=== PATIENT | female | born 1955 | race Caucasian/White ===

== ENCOUNTER 2024-02-25 05:06 | Observation (INO) ==
--- NOTE | 2024-01-28 14:03 | PAT Medication Instructions ---
Medication Instructions Date of Service January 28, 2024 Home Medications amitriptyline 25 mg tablet 75 mg PO HS cholecalciferol (vitamin D3) 125 mcg (5,000 unit) tablet (Vitamin D3) 125 mcg PO QAM duloxetine 30 mg capsule,delayed release 60 mg PO HS gabapentin 400 mg tablet 500 mg PO BID hydroxyzine HCl 10 mg tablet 10 mg PO TID PRN itchiness/dry skin levothyroxine 50 mcg tablet 50 mcg PO QAM meloxicam 15 mg tablet 15 mg PO QAM metformin 500 mg tablet 1,000 mg PO QAM multivitamin 1 cap PO QAM omeprazole 40 mg capsule,delayed release 40 mg PO HS potassium chloride 10 mEq capsule,extended release 10 meq PO QAM propranolol 80 mg tablet 80 mg PO QAM rosuvastatin 5 mg tablet 5 mg PO QAM ASK your surgeon for instructions meloxicam 15 mg tablet 15 mg PO QAM DO NOT take the morning of surgery cholecalciferol (vitamin D3) 125 mcg (5,000 unit) tablet (Vitamin D3) 125 mcg PO QAM hydroxyzine HCl 10 mg tablet 10 mg PO TID PRN itchiness/dry skin metformin 500 mg tablet 1,000 mg PO QAM multivitamin 1 cap PO QAM potassium chloride 10 mEq capsule,extended release 10 meq PO QAM Take morning of surgery With a small sip of water, OTHERWISE NOTHING TO EAT OR DRINK AFTER MIDNIGHT: gabapentin 400 mg tablet 500 mg PO BID levothyroxine 50 mcg tablet 50 mcg PO QAM propranolol 80 mg tablet 80 mg PO QAM rosuvastatin 5 mg tablet 5 mg PO QAM Take evening before surgery amitriptyline 25 mg tablet 75 mg PO HS duloxetine 30 mg capsule,delayed release 60 mg PO HS gabapentin 400 mg tablet 500 mg PO BID hydroxyzine HCl 10 mg tablet 10 mg PO TID PRN itchiness/dry skin (if needed) omeprazole 40 mg capsule,delayed release 40 mg PO HS Other Notes If you have any questions please call us at [phone] or [phone] or [phone] or [phone]
--- NOTE | 2024-01-30 11:37 | Anesthesiology Consultation ---
Date of Service January 30, 2024 Assessment & Plan (1) Encounter for pre-operative examination: - check BSG am DOS. - difficult IV stick. - Outpatient joint assessment: Patient is currently scheduled for inpatient pathway. If re-evaluated and patient/surgeon requests outpatient pathway, patient is acceptable candidate for outpatient joint program from anesthesia standpoint pending surgeon's office assessment of pt motivation/support/completion of same day joint program preop requirements. Chart Review Chart Review: Acceptable Risk for Surgery and Patient seen in Pre Admission Testing Teaching & Discussion Pre-Anesthesia Teaching/Discussion Notes: Instructed NPO after midnight before surgery, except medications with 15 cc of water. Medication instructions provided according to the PAT guidelines. History Surgery Operation Date: 02/25/24 09:20 Proposed Procedures p Left Total Shoulder Arthroplasty - Cesar Prado MD Height/Weight Height: 5 ft 9 in Weight: 109 kg Allergies Allergy/AdvReac Type Severity Reaction Status Date / Time fluconazole Allergy Unknown HIVES Verified 01/27/24 10:37 Sulfa (Sulfonamide Allergy Unknown sometimes Verified 01/27/24 10:37 Antibiotics) stomach upset and ulcers in mouth Medications Home Medications Medication Instructions Recorded Confirmed Last Taken amitriptyline 25 mg tablet 75 mg PO HS 01/27/24 01/27/24 Unknown cholecalciferol (vitamin D3) 125 125 mcg PO QAM 01/27/24 01/27/24 Unknown mcg (5,000 unit) tablet (Vitamin D3) duloxetine 30 mg capsule,delayed 60 mg PO HS 01/27/24 01/27/24 Unknown release gabapentin 400 mg tablet 500 mg PO BID 01/27/24 01/27/24 Unknown hydroxyzine HCl 10 mg tablet 10 mg PO TID PRN itchiness/dry skin 01/27/24 01/27/24 Unknown levothyroxine 50 mcg tablet 50 mcg PO QAM 01/27/24 01/27/24 Unknown meloxicam 15 mg tablet 15 mg PO QAM 01/27/24 01/27/24 Unknown metformin 500 mg tablet 1,000 mg PO QAM 01/27/24 01/27/24 Unknown multivitamin 1 cap PO QAM 01/27/24 01/27/24 Unknown omeprazole 40 mg capsule,delayed 40 mg PO HS 01/27/24 01/27/24 Unknown release potassium chloride 10 mEq 10 meq PO QAM 01/27/24 01/27/24 Unknown capsule,extended release propranolol 80 mg tablet 80 mg PO QAM 01/27/24 01/27/24 Unknown rosuvastatin 5 mg tablet 5 mg PO QAM 01/27/24 01/27/24 Unknown Past Medical History Medical History (Updated 01/30/24 @ 11:43 by Era Mullen PA-C) Acid reflux controlled, stable per pt Anxiety and depression Chronic bronchitis no recent flare. Chronic sinusitis no current s/s infection. DDD (degenerative disc disease), lumbar Difficult intravenous access Fatty liver Herniated disc, cervical full rom History of blood transfusion with lumbar surgery 2011 History of COVID-19 (2019) altered sense of taste and no sense of smell since. History of herniated intervertebral disc thoracic Hypothyroid Migraines Neuropathy hands and feet Osteoarthritis Pre-diabetes on metformin Spondylolisthesis Patient denies h/o stroke, seizures, heart attack, heart failure, or blood clots/DVTs. Exercise / Class Metabolic Activity II 4-5 Yardwork/Stairs/Walk up hill (denies chest discomfort or shortness of breath with one flight of stairs) Past Family History Family History Sister Family history of reaction to anesthesia slow to wake up Past Surgical History Surgical History (Updated 01/30/24 @ 11:32 by Era Mullen PA-C) History of back surgery x4 - 2012, 2014, 2016 and 2018 - 6 rods and 17 bone screws in back. History of bilateral cataract extraction (~01/2024) History of bilateral knee replacement History of colonoscopy History of endoscopy History of sinus surgery x6 Past Anesthesia History No Hx of Anesthesia Complications and Other (sister and maternal aunt slow to wake-patient denies it being life-threatening of significant issue to her knowledge; she denies any personal history of anesthesia reactions or difficulty waking up) History of PONV No Hx of PONV and No Hx of Motion Sickness Social History Smoking Status: Never smoker Do You Dip or Chew Tobacco: No Hx Alcohol Use: No Hx Substance Use: No substance use type: does not use Review of Systems Snoring, denies witnessed apneas. Patient denies chest pain, shortness of breath, dyspnea on exertion, fever, chills, cough, wheezing, or palpitations. Physical Exam Vital Signs Vitals BP 137/90 P 115 (pt notes HR is often elevated in clinical settings due to anxiety) TEMP 98.3 SP02 96% on RA RESP 18 Physical Patient resting comfortably in chair in no acute distress, alert and oriented, responding appropriately throughout visit Mildly limited cervical extension range of motion without pain TMD < 3 finger breadths Mallampati Score 3 Dentition: intact, denies chipped or loose teeth, caps/crowns, implants or bridges Lungs: normal respiratory effort. Good air movement, clear throughout to auscultation, no adventitious breath sounds Cardiac: tachycardic, regular rhythm, no murmurs noted Carotid arteries: negative bruit bilat Lab Results Anesthesia Preop Results Results Anesthesia Widget: WBC 6.00 K/ul (4.8-10.8) 01/30/24 Hgb 14.7 g/dl (12.0-16.0) 01/30/24 Hct 45.0 % (37.0-47.0) 01/30/24 Plt 216 K/uL (130-400) 01/30/24 Na 138 mmol/L (136-145) 01/30/24 K 4.7 mmol/L (3.5-5.1) 01/30/24 Cl 105 mmol/L (98-107) 01/30/24 CO2 26 mmol/L (21-32) 01/30/24 BUN 25 mg/dl (6-23) H 01/30/24 Creat 0.98 mg/dl (0.6-1.2) 01/30/24 Glucose Level 114 mg/dl (70-99(Fasting)) H 01/30/24 PT 10.8 Seconds (9.0-12.0) 01/30/24 PTT 27 Seconds (21-31) 01/30/24 INR 1.0 (0.9-1.1) 01/30/24 TSH 0.710 uIu/ml (0.300-4.500) 01/30/24 HA1c 5.9 % (4.5-5.6) H 01/30/24 Urine Color Yellow 01/30/24 Urine Appearance Clear (Clear) 01/30/24 Urine pH 5.5 (4.5-7.5) 01/30/24 Urine Specific [place] 1.020 (1.000-1.030) 01/30/24 Urine Protein Trace (Negative) H 01/30/24 Urine Glucose (UA) Negative (Negative) 01/30/24 Urine Ketones Trace (Negative) H 01/30/24 Urine Blood Negative (Negative) 01/30/24 Urine Nitrite Negative (Negative) 01/30/24 Urine Bilirubin Negative (Negative) 01/30/24 Urine Urobilinogen Negative (Negative) 01/30/24 Urine Leukocyte Esterase Negative (Negative) 01/30/24 Urine WBC (Auto) 0-5 /hpf (0-5) 01/30/24 Urine RBC (Auto) 0-2 /hpf (0-2) 01/30/24 Urine Hyaline Casts (Auto) 0-2 /lpf (0-2) 01/30/24 Urine Epithelial Cells (Auto) 0-2 /hpf (0-2) 01/30/24 Urine Bacteria (Auto) None Seen (None Seen) 01/30/24 Blood Type O Positive 01/30/24 Antibody Screen NEGATIVE 01/30/24 Testing Electrocardiogram Date: 01/30/24 NSR, rate 100 bpm Chest X-Ray Date: 01/30/24 No active disease in the chest. Cervical Spine Date: 08/19/23 1. No fracture or subluxation within the cervical spine. 2. Broad-based posterior disc osteophyte complex at C5-C6 resulting in [id number] central canal and severe bilateral neural foraminal narrowing. 3. A 3 mm left paracentral focal disc protrusion at C4-C5 which abuts and displaces the exiting left nerve root at this level. 4. Additional degenerative changes as described above.
--- OUTSIDE RECORDS SUMMARY | 2024-02-25 05:24 | External Medical Summary | Summary of Care ---
Author Name Unknown Organization [facility] Address [address] [place] [address] Phone [phone] Care Team Providers Care Brand Specialist Name Role Phone Lesa Holguin MD Primary Care Provider Reason for Visit * Reason Comments Pre-op Clearance 02/25/24 shoulder thro ugh [facility] Encounter Details Date Type Department Care Team (Late st Contact Info) Description 02/17/2024 1:20 PM EDT Office Visit Family Practice [facility] [address] [facility] [place] [address] Pur[facility] Rao [facility] [address] [facility] [address] [id number] Preoperative general physical examination* Allergies Active Allergy Reactions Criticality Noted Date Comments Ciprofloxacin High 01/22/2021 Fluconazole Hives 04/14/2019 Sulfa Antibiotics 04/14/2019 "mouth ulcers" documented as of this encounter (statuses as of 02/17/2024) Medications Medication Sig Dispensed Refills Start Date End Date Status Cholecalciferol (VITAMIN D3) 3000 units Tablet Take 1 Tablet by mouth in the morning. Active ProAir HFA 108 (90 Base) MCG/ACT Inhalation Aerosol Solution Inhale 1 Inhaler by mouth 2 times a day as needed for Cough or Wheezing. Inhale by mouth 2 times a day as needed . 8.5 g 2 Active Gabapentin 300 MG Oral Capsule (Neurontin)Indicati ons:Polyneuropathy Take 1 Capsule by mouth in the morning and 1 Capsule at noon and 1 Capsule before bedtime. 270 Capsule 3 3 Active Rosuvastatin Calcium 5 MG Oral Tablet (Crestor)Indication s:Dyslipidemia, goal LDL below 130 Take 1 Tablet by mouth in the morning. 90 Tablet 3 3 Active Levothyroxine Sodium 50 MCG Oral Tablet (Levoxyl)Indication s:Acquired hypothyroidism Take 1 Tablet by mouth daily first thing in the morning. 90 Tablet 3 3 Active Omeprazole 40 MG Oral Capsule Delayed Release (PriLOSEC)Indicatio ns:Gastroesophageal reflux disease without esophagitis Take 1 Capsule by mouth in the morning. 90 Capsule 3 3 Active metFORMIN HCl ER 500 MG Oral Tablet Extended Release 24 Hour (Glucophage XR)Indications:Pred iabetes Take 2 Tablets by mouth in the morning. 60 Tablet 11 4 Active Meloxicam 15 MG Oral Tablet (Mobic)Indications: Bilateral primary osteoarthritis of knee take 1 tablet by mouth once daily AFTER A MEAL 90 Tablet 3 4 Active Irbesartan 75 MG Oral Tablet (Avapro)Indications :HTN, goal below 130/80 Take 1 Tablet by mouth daily. 90 Tablet 3 4 Active One-A-Day Womens 50+ Oral Tablet Take by mouth. Activ e DULoxetine HCl 30 MG Oral Capsule Delayed Release Particles (Cymbalta)Indicatio ns:Fibromyalgia Take 1 Capsule by mouth daily. 90 Capsule 1 4 Active Propranolol HCl ER 80 MG Oral Capsule Extended Release 24 Hour (Inderal LA)Indications:Othe r migraine without status migrainosus, not intractable take 1 capsule by mouth once daily 90 Capsule 1 4 Active Amitriptyline HCl 25 MG Oral Tablet (Elavil)Indications :Other migraine without status migrainosus, not intractable Take 2 Tablets by mouth at bedtime. 180 Tablet 1 4 Active Potassium Chloride ER 10 MEQ Oral Tablet Extended Release Take 1 Tablet by mouth in the morning. 90 Tablet 1 4 Active hydrOXYzine HCl 10 MG Oral Tablet (Atarax) Take 1 Tablet by mouth 3 times a day as needed for Anxiety or Itching. 90 Tablet 4 Active NATURAL SUPPLEMENT Take by mouth daily. Takes allergy pill from [facility] 02/17/20 24 Discontinu ed(Medicat ion List Clean Up) hydrOXYzine HCl 10 MG Oral Tablet (Atarax) take 1 tablet by mouth three times a day if needed 90 Tablet 4 02/17/20 24 Discontinu ed(Refill) predniSONE 10 MG Oral Tablet (Deltasone) take 4 tablets by mouth once daily as directed for THE FIRST 3 DA... (REFER TO PRESCRIPTION NOTES). 4 02/17/20 24 Discontinu ed(Medicat ion List Clean Up) Bactrim DS 800-160 MG Oral Tablet Bactrim DS 800 mg-160 mg tablet 4 02/17/20 24 Discontinu ed(Medicat ion List Clean Up) documented as of this encounter (statuses as of 02/17/2024) Active Problems Problem Noted Date Diagnosed Date HTN, goal below 130/80 11/20/2023 Prediabetes 11/25/2022 Overview: Per Prediabetes protocol Migraine 08/19/2022 Polyneuropathy 08/19/2022 Overview: left leg after surgery S/P total knee arthroplasty, left 05/06/2022 Preoperative general physical examination 2021 Status post total right knee replacement 020 Bilateral carpal tunnel syndrome 04/14/2019 Hypothyroid GERD (gastroesophageal reflux disease) Fibromyalgia DDD (degenerative disc disease), lumbar Overview: s/p multiple surgeries DDD (degenerative disc disease), cervical Bilateral primary osteoarthritis of knee documented as of this encounter (statuses as of 02/17/2024) Immunizations Name Administration Dates Next Due Pneumococcal Conjugate Vaccine, 20-valent (Prevn ar20) 05/19/2023 Pneumococcal Polysaccharide PPV23 (Pneumovax) Seasonal Influenza, Quadrivalent Hd (Fluzone Hd) 05/19/2023,04/17/2022 TDAP (age 10 and older)(Boostrix) 08/19/2022 Zoster Vaccine Recombinant (Shingrix) 10/12/2021 ,06/27/2021 documented as of this encounter Social History Tobacco Use Types Packs/Day Years Used Date Smoking Tobacco: Never Smokeless Tobacco: Never Alcohol Use Standard Drinks/Week Comments Never 0 (1 standard drink = 0.6 oz pur e alcohol) PHQ-2 Answer Date Recorded PHQ Adult Total Score 2 11/20/2023 Hunger Vital Sign Answer Date Recorded Within the past 12 months, y ou worried that your food would run out before you got the money to buy more. Never true 11/08/19 24 Within the past 12 months, t he food you bought just didn't last and you didn't have money to get more. Never true 11/08/2023 Childcare Answer Date Recorded Do you feel overwhelmed with taking care of a child, family member or friend? No 11/08/2023 Does your family need help f inding childcare? (Household - for ages 0-17 years) Not on file 11/08/2023 Clothing Answer Date Recorded Have you been unable to get clothing when it was really needed? No 11/08/2023 Is your family able to get c lothes or diapers when needed? (Household - for ages 0-17 years) Not on file 11/08/2023 Personal Safety Answer Date Recorded Do you feel unsafe or have concerns for your saf ety? No 11/08/2023 Do you have concerns for you r family's safety? (Household - for ages 0-17 years) Not on file 11/08/2023 Utilities Answer Date Recorded Do you have trouble paying y our heating, water, or electric bill? No 11/08/2023 Is your family able to pay t he heat, water, or electric bill? (Household - for ages 0-17 years) Not on file 11/08/2023 Does your family have access to good internet? (Household - for ages 0-17 years) Not on file 11/08/2023 Employment Status Answer Date Recorded Are you unemployed or without regular income? No 11/08/2023 Does the household have a re gular source of income? (Household - for ages 0-17 years) Not on file 11/08/2023 Social Connections Answer Date Recorded How often do you feel lonely or isolated from th ose around you? Rarely 11/08/2023 Financial Resource Strain Answer Date R ecorded Do you have any trouble payi ng for your medications, or do you think you might in the future? No 11/08/2023 Does your family have troubl e paying for medicine? (Household - for ages 0-17 years) Not on file 11/08/2023 Transportation Needs Answer Date Record ed READ ONLY Do you have troubl e getting a ride to medical visits or work? Never True 11/08/2023 Does your family have a hard time getting a ride to doctors visits? (Household - for ages 0-17 years) Not on file 11/08/2023 Has lack of transportation k ept you from medical appointments, meetings, work, or from getting things needed for daily living? Check all that apply. (Adult - for ages 18 years and over) Not on file 11/08/2023 Do you (or your family) have trouble finding or paying for a ride (transportation)? (Household - for ages 0-17 years) Not on file 11/08/2023 Housing Stability Answer Date Recorded Do you currently live in a s helter or have no steady place to sleep at night? No 11/08/2023 READ ONLY Do you think you a re at risk of becoming homeless? No 11/08/2023 Does your family worry about paying for your home or becoming homeless? (Household - for ages 0-17 years) Not on file 0 11/08/2023 Are you homeless or worried that you might be in the future? (Adult - for ages 18 years and over) Not on file Are you (or your family) jj eless or worried that you might be in the future? (Household - for ages 0-17 years) Not on file Food Insecurity Answer Date Recorded Do you need food for this week? No 11/08/2023 Are you able to get enough f ood for your family? (Household - for ages 0-17 years) Not on file 11/08/2023 Does your family need food t his week? (Household - for ages 0-17 years) Not on file 11/08/2023 Do you always have enough fo od for your family? (Household - for ages 0-17 years) Not on file 11/08/2023 Sex and Gender Information Value Date Recorded Sex Assigned at Female 08/19/2022 5:05 PM EST Gender Identity Female 08/19/2022 5:05 PM EST Sexual Orientation Straight 08/19/2022 5: 05 PM EST Job Start Date Occupation Industry Not on file Not on file Not on file documented as of this encounter Last Filed Vital Signs Vital Sign Reading Time Taken Comments Blood Pressure 130/90 02/17/2024 1:08 PM EDT Pulse 102 02/17/2024 1:08 PM EDT Temperature - - Respiratory Rate - - Oxygen Saturation 98% 02/17/2024 1:08 PM EDT Inhaled Oxygen Concentration - - Weight 108.2 kg (238 lb 7 oz) 02/17/2024 1:08 PM EDT Height - - Body Mass Index 34.21 01/02/2024 9:52 AM EDT documented in this encounter Functional Status Functional Status Response Date of Assess ment Are you deaf or do you have serious difficulty h earing? No 05/06/2022 Are you blind or do you have serious difficulty seeing, even when wearing glasses? No 05/06/2022 Do you have serious difficul ty walking or climbing stairs? (5 years old or older) Yes 05/06/2022 Do you have difficulty dress ing or bathing? (5 years old or older) No 05/06/2022 Because of a physical, menta l, or emotional condition, do you have difficulty doing errands alone such as visiting a doctor s office or shopping? (15 years old or older) No 05/06/20 Cognitive Status Response Date of Assessm ent Because of a physical, menta l, or emotional condition, do you have serious difficulty concentrating, remembering, or making decisions? (5 years old or older) No 05/06/2022 documented as of this encounter Progress Notes * Purvi Rao CRNP - 02/17/2024 12:46 PM EDT Sagrario Galeano : 1955 Chief Complaint: Patient is sent for pre-operative medical clearance at the request of Dr. Johan valiente Planned Surgery: left shoulder replacement Date: 02/25/2024 Planned anesthesia: general anesthesia HPI: 68 year old female presenting for preoperative clearance. Sagrario is able to walk 1 city block without champion and able to ascend 1 flight of step without shortness of breath. Denies difficulty with anesthesia in the past. Patient Active Problem List Diagnosis Hypothyroid GERD (gastroesophageal reflux disease) Fibromyalgia DDD (degenerative disc disease), lumbar DDD (degenerative disc disease), cervical Bilateral primary osteoarthritis of knee Bilateral carpal tunnel syndrome Status post total right knee replacement Preoperative general physical examination S/P total knee arthroplasty, left Migraine Polyneuropathy Prediabetes HTN, goal below 130/80 Past Surgical History: Procedure Laterality Date ARTHROPLASTY KNEE TOTAL Right 08/02/2019 ARTHROPLASTY KNEE TOTAL performed by Ghassan Marroquin DO at OR [facility] ARTHROPLASTY KNEE TOTAL Left 05/06/2022 ROBOTIC ARTHROPLASTY KNEE TOTAL performed by Ghassan Marroquin DO at OR [facility] MISCELLANEOUS ORDER ([facility] ONLY) 10/14/2018 back surgery x 4 6 rods and 17 screws lumbar t6 through pelvis SINUS SURGERY PROCEDURE NEC 05/2021 Current Outpatient Medications Medication Sig Dispense Refill Cholecalciferol (VITAMIN D3) 3000 units Tablet Take 1 Tablet by mouth in the morning. NATURAL SUPPLEMENT Take by mouth daily. Takes allergy pill from [employer] HFA 108 (90 Base) MCG/ACT Inhalation Aerosol Solution Inhale 1 Inhaler by mouth 2 times a day as needed for Cough or Wheezing. Inhale by mouth 2 times a day as needed . 8.5 g 0 Gabapentin 300 MG Oral Capsule (Neurontin) Take 1 Capsule by mouth in the morning and 1 Capsule at noon and 1 Capsule before bedtime. 270 Capsule 3 Rosuvastatin Calcium 5 MG Oral Tablet (Crestor) Take 1 Tablet by mouth in the morning. 90 Tablet 3 Levothyroxine Sodium 50 MCG Oral Tablet (Levoxyl) Take 1 Tablet by mouth daily first thing in the morning. 90 Tablet 3 Omeprazole 40 MG Oral Capsule Delayed Release (PriLOSEC) Take 1 Capsule by mouth in the morning. 90Capsule 3 metFORMIN HCl ER 500 MG Oral Tablet Extended Release 24 Hour (Glucophage XR) Take 2 Tablets by mouth in the morning. 60 Tablet 11 Meloxicam 15 MG Oral Tablet (Mobic) take 1 tablet by mouth once daily AFTER A MEAL 90 Tablet 3 Irbesartan 75 MG Oral Tablet (Avapro) Take 1 Tablet by mouth daily. (Patient not taking: Reported on 01/02/2024) 90 Tablet 3 hydrOXYzine HCl 10 MG Oral Tablet (Atarax) take 1 tablet by mouth three times a day if needed 90 Tablet 0 One-A-Day Womens 50+ Oral Tablet Take by mouth. predniSONE 10 MG Oral Tablet (Deltasone) take 4 tablets by mouth once daily as directed for THE FIRST 3 DA... (REFER TO PRESCRIPTION NOTES). Bactrim DS 800-160 MG Oral Tablet Bactrim DS 800 mg-160 mg tablet DULoxetine HCl 30 MG Oral Capsule Delayed Release Particles (Cymbalta) Take 1 Capsule by mouth daily. 90 Capsule 1 Propranolol HCl ER 80 MG Oral Capsule Extended Release 24 Hour (Inderal LA) take 1 capsule by mouthonce daily 90 Capsule 1 Amitriptyline HCl 25 MG Oral Tablet (Elavil) Take 2 Tablets by mouth at bedtime. 180 Tablet 1 Potassium Chloride ER 10 MEQ Oral Tablet Extended Release Take 1 Tablet by mouth in the morning. 90Tablet 1 No current facility-administered medications for this visit. Review of patient's allergies indicates: Allergen Reactions Ciprofloxacin Diflucan [Fluconazole] Hives Sulfa Antibiotics "mouth ulcers" Social History Socioeconomic History Marital status: Spouse name: Not on file Number of children: 2 Years of education: Not on file Highest education level: Not on file Occupational History Comment: disbursement clerk at [employer] Tobacco Use Smoking status: Never Smokeless tobacco: Never Vaping Use Vaping status: Never Used Substance and Sexual Activity Alcohol use: Never Drug use: Never Sexual activity: Not on file Other Topics Concern Not on file Social History Narrative Not on file Social Determinants of Health Financial Resource Strain: Low Risk (11/08/2023) Financial Resource Strain Do you have any trouble paying for your medications, or do you think you might in the future? (Adult - for ages 18 years and over): No Does your family have trouble paying for medicine? (Household - for ages 0-17 years): Not on file Food Insecurity: No Food Insecurity (11/08/2023) Food Insecurity Do you need food for this week? (Adult - for ages 18 years and over): No Are you able to get enough food for your family? (Household - for ages 0-17 years): Not on file Does your family need food this week? (Household - for ages 0-17 years): Not on file Do you always have enough food for your family? (Household - for ages 0-17 years): Not on file Transportation Needs: No Transportation Needs (11/08/2023) Transportation Needs Do you have trouble getting a ride to medical visits or work? (Adult - for ages 18 years and over):Never True Does your family have a hard time getting a ride to doctors visits? (Household - for ages 0-17 years): Not on file Has lack of transportation kept you from medical appointments, meetings, work, or from getting things needed for daily living? Check all that apply. (Adult - for ages 18 years and over): Not on file Do you (or your family) have trouble finding or paying for a ride (transportation)? (Household - for ages 0-17 years): Not on file Social Connections: Socially Integrated (11/08/2023) Social Connections How often do you feel lonely or isolated from those around you? (Adult - for ages 18 years and over): Rarely Housing Stability: Low Risk (11/08/2023) Housing Stability Do you currently live in a alf or have no steady place to sleep at night? (Adult - for ages 18 years and over): No Do you think you are at risk of becoming homeless? (Adult - for ages 18 years and over): No Does your family worry about paying for your home or becoming homeless? (Household - for ages 0-17 years): Not on file Are you homeless or worried that you might be in the future? (Adult - for ages 18 years and over): Not on file Are you (or your family) homeless or worried that you might be in the future? (Household - for ages0-17 years): Not on file Family History Problem Relation Name Age of Onset Hypertension Mother Diabetes Father Arthritis Father Heart disease Father Migraines Sister Hypertension Grandmother (Maternal) Diabetes Grandfather (Maternal) Throat cancer Grandfather (Paternal) Arthritis Son Breast Cancer Cousin (Maternal) late 60s Breast Cancer Cousin (Maternal) late 60s Ovarian cancer No significant family history Colon cancer No significant family history Review of Systems Constitutional: Negative for chills, diaphoresis, fatigue and fever. Respiratory: Negative for cough, shortness of breath and wheezing. Cardiovascular: Negative for chest pain, palpitations and leg swelling. Gastrointestinal: Negative for abdominal pain, blood in stool, constipation and diarrhea. Neurological: Negative for dizziness and syncope. Psychiatric/Behavioral: Positive for sleep disturbance. Filed Vitals: 02/17/24 1308 BP: 130/90 Pulse: 102 SpO2: 98% Weight: 108.2 kg (238 lb 7 oz) Physical Exam HENT: Head: Normocephalic. Eyes: Pupils: Pupils are equal, round, and reactive to light. Cardiovascular: Rate and Rhythm: Normal rate and regular rhythm. Pulmonary: Effort: Pulmonary effort is normal. Breath sounds: Normal breath sounds. Abdominal: General: Bowel sounds are normal. Palpations: Abdomen is soft. Tenderness: There is no abdominal tenderness. Musculoskeletal: General: Normal range of motion. Cervical back: Normal range of motion. Neurological: General: No focal deficit present. Mental Status: Sagrario is alert and oriented to person, place, and time. Psychiatric: Mood and Affect: Mood normal. Behavior: Behavior normal. Thought Content: Thought content normal. Judgment: Judgment normal. 1. Preoperative general physical examination PRE-OPERATIVE TESTS: ECG:normal with no change LABS:CBC, BMP, U/A, CHEST X RAY NORMAL PRE-OPERATIVE CLEARANCE DISCUSSION: There is no medical contraindication for the proposed surgery and anesthesia. Concerns/Precautions: I spent a total of 20-29 minutes (exact time 25 mins) on the date of service in preparation, delivery, and documentation of the care provided to Sagrario Galeano excluding any time spent in the performance of separately billed services. documented in this encounter Plan of Treatment Upcoming Encounters Date Type Department Care Team (Latest Contact Info) Description 03/17/2024 10:00 AM EDT Office Visit Family Practice [facility] [address] [place] [address] Lesa Holguin MD [address] [place] [address] 04/27/2024 10:00 AM EDT [address] [address] 05/18/2024 9:20 AM EDT Office Visit Hepatology, [facility] [address] [place] [address] Altagracia Curran DO [address] [place] [address] 05/27/2024 9:00 AM EST Hospital Encounter [facility]O [facility], Endoscopy Room [facility] [address] [place] [phone] Viktor Jefferson MD [address] [place] [address] 05/27/2024 9:00 AM EST - 05/27/2024 9:30 AM EST Surgery ENDO [facility], Endoscopy Room [facility] [address] [place] [phone] Viktor Jefferson MD [address] [place] [address] COLONOSCOPY FLEXIBLE PROXIMAL DIAGNOSTIC Scheduled Procedures Name Priority Associated Diagnoses Date/Ti me COLONOSCOPY FLEXIBLE PROXIMAL DIAGNOSTIC Special screening for malignant neoplasms, colon 05/27/2024 9:00 AM EST Health Maintenance Due Date Last Done Comments DXA Scan 1955 Cologuard 12/17/2000 Colonoscopy 12/17/2000 Colorectal Cancer Screening 12/17/2000 Fecal Occult Blood Test 12/17/2000 Sigmoidoscopy 12/17/2000 Mammogram 01/04/2024 01/03/2023, 01/19, 08/06/2018 Influenza Vaccine (FLU shot) (#1) 2024 05/19/2023, 04/17/2022, 05/21/2013 TSH 06/13/2024 06/13/2023, 10/07/2021, 03/02/2021 HbA1c 10/27/2024 10/28/2023, 05/22, 10/31/2022, Additional history exists Depression Screening 11/19/2024 11/20/2023 GFR 12/01/2024 12/02/2023, 05/22, 04/21/2023, Additional history exists Albumin/Creatinine Ratio 06/13/2026 06/13/2023 Lipid Panel 04/20/2027 04/20/2022 DTaP,Tdap,and Td Vaccines (2 - Td or Tdap) 08/19/2032 08/19/2022 Zoster Vaccines Completed 10/12/2021, 06/27/2021 Hepatitis C Screening Completed 04/29/2022 , 04/20/2022, 04/20/2022, Additional history exists Pneumococcal Vaccine: 65+ Years Completed 05/19/2023, 03/02/2021 COVID-19 Vaccine Discontinued HPV (Gardasil) Vaccine Aged Out No lo nger eligible based on patient's age to complete this topic Hepatitis B Vaccine Aged Out No longe r eligible based on patient's age to complete this topic MENINGOCOCCAL (MENACTRA/MENVEO) Aged Out No longer eligible based on patient's age to complete this topic documented as of this encounter Medical Devices Implanted Type Area Freight Broker Device Identifier Shelf Expiration Date Model / Serial / Lot Baseplate #5 Tritanium - [id number] Implanted:Qty: 1 on 08/02/2019 by Ghassan Marroquin, DO at OR [facility] Right: Knee ANTOINE : ORTH[employer] 02/01/2024 5536-B-500 / / [id number] Triathlon Tritanium Asymmetric Patella Implanted:Qty: 1 on 08/02/2019 by Ghassan Marroquin, DO at OR [facility] Right: Knee ATNOINE : ORTHOP[employer] 03/31/2023 5552-L-350 / / [id number] Knee Triathlon Bead No Abiodun R 4 - [id number] Implanted:Qty: 1 on 08/02/2019 by Ghassan Marroquin, DO at OR [facility] Right: Knee ANTOINE : OR[employer] 12/11/2023 5517-F-402 / / [id number] Triathlon X3 Tibial Bearing Insert-Cs Implanted:Qty: 1 on 08/02/2019 by Ghassan Marroquin, DO at [facility] Right: Knee ANTOINE : OR[employer] 12/01/2023 5531-G-[id number] -[id number] / / [id number] Knee Triathlon Bead No Abiodun L 4 - [id number] Implanted:Qty: 1 on 05/06/2022 by Ghassan Marroquin, DO at OR [facility] Left: Knee ANTOINE : ORTH[employer] 01/21/2027 5517-F-401 / / [id number] Baseplate #4 Tritanium - [id number] Implanted:Qty: 1 on 05/06/2022 by Ghassan Marroquin, at OR [facility] Left: Knee ANTOINE : OR[employer] 11/28/2025 5536-B-400 / / [id number] Patella Symmetric S33mm 9mm - [id number] Implanted:Qty: 1 on 05/06/2022 by Ghassan Marroquin DO at OR [facility] Left: Knee ANTOINE : ORTHOPAEDICS 08/08/2026 [id number]-L-[id number] / / [id number] Knee X3 Ins Pos Cs Sz4 9 - [id number] Implanted:Qty: 1 on 05/06/2022 by Ghassan Marroquin, at OR [facility] Left: Knee ANTOINE : ORTHOPAEDICS 01/01/2027 5531-G-[id number] -[id number] / / [id number] documented as of this encounter Visit Diagnoses Diagnosis Preoperative general physical examination- Primary Other specified pre-operative examination Special screening for malignant neoplasms, colon documented in this encounter Advance Directives * Full Code (Latest Code Status on File) Date Activated Date Inactivated Comments 05/06/2022 1:20 PM 05/07/2022 3:11 PM This order reflects the patients wishes and were consensually agreed upon. Question Answer Comments Discussion of Advance Directives occurred with: Patient * Full Code Date Activated Date Inactivated Comments 08/02/2019 2:52 PM 08/03/2019 10:15 PM This order reflects the patients wishes and were consensually agreed upon. Question Answer Comments Discussion of Advance Directives occurred with: Patient Does the patient have a Living Will? No Does the patient have Health Care Power of Attor saadia? No Care Teams Brand Specialist Relationship Specialty Start Date End Date Lesa Holguin MD [address] [place] [id number] PCP - General Internal Medicine 05/16/22 documented as of this encounter
--- OUTSIDE RECORDS SUMMARY | 2024-02-25 05:24 | External Medical Summary | Summary of Care ---
Author Name Unknown Organization [facility] Address [address] [place] [address] Phone [phone] Care Team Providers Care Internal Medicine Veterinary Technician Name Role Phone Cihno Holguin MD Primary Care Provider Reason for Visit * Reason Onset Date Comments Medication Refill 02/21/2024 Encounter Details Date Type Department Care Team (Late st Contact Info) Description 02/21/2024 Refill Family Practice [facility] [address] [place] [address] Ramona Barajas DO [address] [place] [address] Allergies Active Allergy Reactions Criticality Noted Date Comments Ciprofloxacin High 01/22/2021 Fluconazole Hives 04/14/2019 Sulfa Antibiotics 04/14/2019 "mouth ulcers" documented as of this encounter (statuses as of 02/23/2024) Medications Medication Sig Dispensed Refills Start Date End Date Status Cholecalciferol (VITAMIN D3) 3000 units Tablet Take 1 Tablet by mouth in the morning. Active Gabapentin 300 MG Oral Capsule (Neurontin)Indicatio ns:Polyneuropathy Take 1 Capsule by mouth in the morning and 1 Capsule at noon and 1 Capsule before bedtime. 270 Capsule 3 01/23/2023 Active Rosuvastatin Calcium 5 MG Oral Tablet (Crestor)Indications :Dyslipidemia, goal LDL below 130 Take 1 Tablet by mouth in the morning. 90 Tablet 3 05/19/2023 Active Levothyroxine Sodium 50 MCG Oral Tablet (Levoxyl)Indications :Acquired hypothyroidism Take 1 Tablet by mouth daily first thing in the morning. 90 Tablet 3 05/19/2023 Active Omeprazole 40 MG Oral Capsule Delayed Release (PriLOSEC)Indication s:Gastroesophageal reflux disease without esophagitis Take 1 Capsule by mouth in the morning. 90 Capsule 3 05/19/2023 Active metFORMIN HCl ER 500 MG Oral Tablet Extended Release 24 Hour (Glucophage XR)Indications:Predi abetes Take 2 Tablets by mouth in the morning. 60 Tablet 11 09/01/2023 Active Meloxicam 15 MG Oral Tablet (Mobic)Indications:B ilateral primary osteoarthritis of knee take 1 tablet by mouth once daily AFTER A MEAL 90 Tablet 3 11/20/2023 Active Irbesartan 75 MG Oral Tablet (Avapro)Indications: HTN, goal below 130/80 Take 1 Tablet by mouth daily. 90 Tablet 3 11/20/2023 Active One-A-Day Womens 50+ Oral Tablet Take by mouth. Active DULoxetine HCl 30 MG Oral Capsule Delayed Release Particles (Cymbalta)Indication s:Fibromyalgia Take 1 Capsule by mouth daily. 90 Capsule 1 02/05/2024 Active Propranolol HCl ER 80 MG Oral Capsule Extended Release 24 Hour (Inderal LA)Indications:Other migraine without status migrainosus, not intractable take 1 capsule by mouth once daily 90 Capsule 1 02/04/2024 Active Amitriptyline HCl 25 MG Oral Tablet (Elavil)Indications: Other migraine without status migrainosus, not intractable Take 2 Tablets by mouth at bedtime. 180 Tablet 1 02/05/2024 Active Potassium Chloride ER 10 MEQ Oral Tablet Extended Release Take 1 Tablet by mouth in the morning. 90 Tablet 1 02/04/2024 Active hydrOXYzine HCl 10 MG Oral Tablet (Atarax) Take 1 Tablet by mouth 3 times a day as needed for Anxiety or Itching. 90 Tablet 02/17/2024 Active ProAir HFA 108 (90 Base) MCG/ACT Inhalation Aerosol Solution Inhale 1 Inhaler by mouth 2 times a day as needed for Cough or Wheezing. Inhale by mouth 2 times a day as needed . 8.5 g 02/23/2024 Active ProAir HFA 108 (90 Base) MCG/ACT Inhalation Aerosol Solution Inhale 1 Inhaler by mouth 2 times a day as needed for Cough or Wheezing. Inhale by mouth 2 times a day as needed . 8.5 g 05/28/2022 Discontinue d(Refill) documented as of this encounter (statuses as of 02/23/2024) Active Problems Problem Noted Date Diagnosed Date [...] as of this encounter (statuses as of 02/23/2024) Immunizations Name Administration Dates Next Due Pneumococcal [...] on file documented as of this encounter Functional Status Functional Status Response [...] No 05/06/2022 documented as of this encounter Miscellaneous Notes * Telephone Encounter - Tonja Salinas RPh - 02/23/2024 6:21 AM EDTSigned Prescriptions: Disp Refills ProAir HFA 108 (90 Base) MCG/ACT Inhalatio*8.5 g 0 Sig: Inhale 1Inhaler by mouth 2 times a day as needed for Cough or Wheezing. Inhale by mouth 2 times a day as needed .Authorizing Provider: CHINO HOLGUIN User: TONJA SALINAS documented in this encounter Plan of Treatment Upcoming Encounters Date Type Department Care Team (Latest Contact Info) Description 03/17/2024 10:00 AM EDT Office Visit Family Practice [facility] [address] [address] Chino Holguin MD [address] [address] 04/27/2024 10:00 AM EDT [address] [address] 05/18/2024 9:20 AM EDT Office Visit Hepatology, [facility] [address] [place] [address] Altagracia Curran DO [address] [place] [address] 05/27/2024 9:00 AM EST Hospital Encounter [facility], Endoscopy Room [facility] [address] [place] [phone] Viktor Jefferson MD [address] [place] [address] 05/27/2024 9:00 AM EST - 05/27/2024 9:30 AM EST Surgery ENDO [facility], Endoscopy Room [facility] [address] [place] [phone] Viktor Jefferson MD [address] [place] [address] COLONOSCOPY FLEXIBLE PROXIMAL DIAGNOSTIC Scheduled Procedures Name [...] 2024 05/19/2023, 04/17/2022, 05/21/2013 TSH 06/13/2024 06/13/2023, 1007/2021, 03/02/2021 HbA1c 10/27/2024 10/28/2023, 05/22, 10/31/2022, Additional history exists Depression Screening 11/19/2024 11/20/2023 GFR 12/01/2024 12/02/2023, 05/22, 04/21/2023, Additional history exists Albumin/Creatinine Ratio 06/13/2026 06/13/2023 Lipid Panel 04/20/2027 04/20/2022 DTaP,Tdap,and Td Vaccines (2 - Td or Tdap) 08/19/2032 08/19/2022 Zoster Vaccines Completed 10/12/2021, 06/27/2021 Pneumococcal Vaccine: 65+ Years Completed 05/19/2023, 03/02/2021 [...] this encounter Medical Devices Implanted Type Area Dumpman Device Identifier Shelf Expiration Date Model / Serial / Lot Baseplate #5 Tritanium - [id number] Implanted:Qty: 1 on 08/02/2019 by Ghassan Marroquin DO at OR [facility] Right: Knee ANTOINE : ORTHOPAEDICS 02/01/2024 5536-B-500 / / [id number] Triathlon Tritanium Asymmetric Patella Implanted:Qty: 1 on 08/02/2019 by Ghassan Marroquin DO at OR [facility] Right: Knee ANTOINE : ORTHOPAEDICS 03/31/2023 5552-L-350 / / [id number] Knee Triathlon Bead No Abiodun R 4 - [id number] Implanted:Qty: 1 on 08/02/2019 by Ghassan Marroquin DO at OR [facility] Right: Knee ANTOINE : ORTHOPAEDICS 12/11/2023 5517-F-402 / / [id number] Triathlon X3 Tibial Bearing Insert-Cs Implanted:Qty: 1 on 08/02/2019 by Ghassan Marroquin DO at OR [facility] Right: Knee ANTOINE : ORTHOPAEDICS 12/01/2023 5531-G-510 -E / / [id number] Knee Triathlon Bead No Abiodun L 4 - [id number] Implanted:Qty: 1 on 05/06/2022 by Ghassan Marroquin, DO at OR [facility] Left: Knee ANTOINE : ORTHOPAEDICS 01/21/2027 5517-F-401 / / [id number] Baseplate #4 Tritanium - [id number] Implanted:Qty: 1 on 05/06/2022 by Ghassan Marroquin, DO at OR [facility] Left: Knee ANTOINE : ORTHOPAEDICS 11/28/2025 5536-B-400 / / [id number] Patella Symmetric S33mm 9mm - [id number] Implanted:Qty: 1 on 05/06/2022 by Ghassan Marroquin, DO at OR [facility] Left: Knee ANTOINE : ORTHOPAEDICS 08/08/2026 5556-L-339 / / [id number] Knee X3 Ins Pos Cs Sz4 9 - [id number] Implanted:Qty: 1 on 05/06/2022 by Ghassan Marroquin, DO at OR [facility] Left: Knee ANTOINE : ORTHOPAEDICS 01/01/2027 5531-G-409 -E / / [id number] documented as of this encounter Advance Directives * Full Code [...] Power of Attor saadia? No Care Teams Internal Medicine Veterinary Technician Relationship Specialty Start Date End Date Chino Holguin MD [address] [address] PCP - General Internal Medicine 05/16/22 documented as of this encounter
--- OUTSIDE RECORDS SUMMARY | 2024-02-25 05:24 | External Medical Summary | Summary of Care ---
Author Name Unknown Organization [facility] [address] [address] Phone [phone] Care Team Providers Care Players Assistant Name Role Phone Chino Holguin MD Primary Care Provider Reason for Visit * Reason Comments eRx-Medication Refill Encounter Details Date Type Department Care Team (Late st Contact Info) Description 02/03/2024 Refill Family Practice [facility] [address] [place] [address] Chino Holguin MD [address] [facility] [address] Fibromyalgia; Other migraine without status migrainosus, not intractable Allergies Active Allergy Reactions Criticality Noted Date Comments Ciprofloxacin High 01/22/2021 Fluconazole Hives 04/14/2019 Sulfa Antibiotics 04/14/2019 "mouth ulcers" documented as of this encounter (statuses as of 02/05/2024) Medications Medication Sig Dispensed Refills Start Date End Date Status Cholecalciferol (VITAMIN D3) 3000 units Tablet Take 1 Tablet by mouth in the morning. Active NATURAL SUPPLEMENT Take by mouth daily. Takes allergy pill from [employer] Active ProAir HFA 108 (90 Base) MCG/ACT Inhalation Aerosol Solution Inhale 1 Inhaler by mouth 2 times a day as needed for Cough or Wheezing. Inhale by mouth 2 times a day as needed . 8.5 g 2 Active Gabapentin 300 MG Oral Capsule (Neurontin)Indicat ions:Polyneuropath y Take 1 Capsule by mouth in the morning and 1 Capsule at noon and 1 Capsule before bedtime. 270 Capsule 3 3 Active Rosuvastatin Calcium 5 MG Oral Tablet (Crestor)Indicatio ns:Dyslipidemia, goal LDL below 130 Take 1 Tablet by mouth in the morning. 90 Tablet 3 3 Active Levothyroxine Sodium 50 MCG Oral Tablet (Levoxyl)Indicatio ns:Acquired hypothyroidism Take 1 Tablet by mouth daily first thing in the morning. 90 Tablet 3 3 Active Omeprazole 40 MG Oral Capsule Delayed Release (PriLOSEC)Indicati ons:Gastroesophage al reflux disease without esophagitis Take 1 Capsule by mouth in the morning. 90 Capsule 3 3 Active metFORMIN HCl ER 500 MG Oral Tablet Extended Release 24 Hour (Glucophage XR)Indications:Pre diabetes Take 2 Tablets by mouth in the morning. 60 Tablet 11 4 Active Meloxicam 15 MG Oral Tablet (Mobic)Indications :Bilateral primary osteoarthritis of knee take 1 tablet by mouth once daily AFTER A MEAL 90 Tablet 3 4 Active Irbesartan 75 MG Oral Tablet (Avapro)Indication s:HTN, goal below 130/80 Take 1 Tablet by mouth daily. 90 Tablet 3 4 Active Additional Information Patient not taking.Reported on 01/02/2024 hydrOXYzine HCl 10 MG Oral Tablet (Atarax) take 1 tablet by mouth three times a day if needed 90 Tablet 4 Active One-A-Day Womens 50+ Oral Tablet Take by mouth. Activ e predniSONE 10 MG Oral Tablet (Deltasone) take 4 tablets by mouth once daily as directed for THE FIRST 3 DA... (REFER TO PRESCRIPTION NOTES). 4 Active Bactrim DS 800-160 MG Oral Tablet Bactrim DS 800 mg-160 mg tablet 4 Active DULoxetine HCl 30 MG Oral Capsule Delayed Release Particles (Cymbalta)Indicati ons:Fibromyalgia Take 1 Capsule by mouth daily. 90 Capsule 1 4 Active Propranolol HCl ER 80 MG Oral Capsule Extended Release 24 Hour (Inderal LA)Indications:Oth er migraine without status migrainosus, not intractable take 1 capsule by mouth once daily 90 Capsule 1 4 Active Amitriptyline HCl 25 MG Oral Tablet (Elavil)Indication s:Other migraine without status migrainosus, not intractable Take 2 Tablets by mouth at bedtime. 180 Tablet 1 4 Active Potassium Chloride ER 10 MEQ Oral Tablet Extended Release Take 1 Tablet by mouth in the morning. 90 Tablet 1 4 Active Propranolol HCl ER 80 MG Oral Capsule Extended Release 24 Hour (Inderal LA)Indications:Oth er migraine without status migrainosus, not intractable Take 1 Capsule by mouth daily. 90 Capsule 3 3 02/04/20 24 Discontinued Amitriptyline HCl 25 MG Oral Tablet (Elavil)Indication s:Other migraine without status migrainosus, not intractable Take 3 Tablets by mouth at bedtime. 270 Tablet 3 3 02/05/20 24 Discontinued DULoxetine HCl 30 MG Oral Capsule Delayed Release Particles (Cymbalta)Indicati ons:Fibromyalgia Take 2 Capsules by mouth daily. 180 Capsule 3 3 02/05/20 24 Discontinued Potassium Chloride ER 10 MEQ Oral Tablet Extended Release Take 1 Tablet by mouth in the morning. 90 Tablet 4 02/04/20 24 Discontinued documented as of this encounter (statuses as of 02/05/2024) Active Problems Problem Noted Date Diagnosed Date [...] as of this encounter (statuses as of 02/05/2024) Immunizations Name Administration Dates Next Due Pneumococcal [...] encounter Miscellaneous Notes * Telephone Encounter - Chino Holguin MD - 02/05/2024 8:45 PM EDT Signed Prescriptions: Disp Refills DULoxetine HCl 30 MG Oral Capsule Delayed *90 Cap*1 Sig: Take 1 Capsule by mouth daily.Authorizing Provider: CHINO HOLGUIN Propranolol HCl ER 80 MG Oral Capsule Exte*90 Cap*1 Sig: take 1 capsule by mouth once dailyAuthorizing Provider: CHINO HOLGUINOrdershay User: JUAN JOSÉ STOREY Amitriptyline HCl 25 MG Oral Tablet (Elavi*180 Ta*1 Sig: Take 2 Tablets by mouth at bedtime.Authorizing Provider: CHINO HOLGUIN Potassium Chloride ER 10 MEQ Oral Tablet E*90 Tab*1 Sig: Take 1 Tablet by mouth in the morning.Authorizing Provider: CHINO HOLGUINing User: JUAN JOSÉ STOREY * Telephone Encounter - Juan José Storey RPh - 02/04/2024 11:55 AM EDTPending Prescriptions: Disp Refills DULoxetine HCl 30 MG Oral Capsule Delayed *90 Cap*1 Sig: Take 1 Capsule by mouth daily. Amitriptyline HCl 25 MG Oral Tablet (Elavi*180 Ta*1 Sig: Take 2 Tablets by mouth at bedtime. Signed Prescriptions: Disp Refills Propranolol HCl ER 80 MG Oral Capsule Exte*90 Cap*1 Sig: take 1 capsule by mouth once angel y Authorizing Provider: CHINO HOLGUIN Ordering User: JUAN JOSÉ STOREY Potassium Chloride ER 10 MEQ Oral Tablet E*90 Tab*1 Sig: Take 1 Tablet by mouth in the morning. Authorizing Provider: CHINO HOLGUIN Ordering User: JUAN JOSÉ STOREY * Telephone Encounter - Juan José Storey RPh - 02/04/2024 11:51 AM EDT Per 12/07/23 patient message encounter, patient decreased to 2 tablets of amitriptyline daily. Patient was also advised to decrease duloxetine to 30mg daily. Pended new prescriptions as previously advised. Pending Prescriptions: Disp Refills DULoxetine HCl 30 MG Oral Capsule Delayed*90 Cap*1 Sig: Take 1 Capsule by mouth daily. Amitriptyline HCl 25 MG Oral Tablet (Elav*180 Ta*1 Sig: Take 2 Tablets by mouth at bedtime. Please approve if appropriate. ThanksJuan José PharmD Clinical Pharmacist [facility] [phone] 02/04/2024, 11:54 AM documented in this encounter Plan of Treatment Upcoming Encounters Date Type Department Care Team (Latest Contact Info) Description 02/17/2024 1:20 PM EDT Office Visit [facility] [address] [address] Purvi Rao CRNP [address] [address] 03/17/2024 10:00 AM EDT Office Visit [facility] [address] [address] Chino Holguin MD [address] [address] 04/27/2024 10:00 AM EDT Imaging Radiology, [address] [place] [address] 05/18/2024 9:20 AM EDT Office Visit Hepatology, [facility] [address] [address] Altagracia Curran DO [address] [address] 05/27/2024 9:00 AM EST Hospital Encounter [facility], Endoscopy Room [facility] [address] [phone] Viktor Jefferson MD [address] [place] [address] 05/27/2024 9:00 AM EST - 05/27/2024 9:30 AM EST Surgery [facility]O [facility], Endoscopy Room [facility] [address] [place] [phone] Viktor Jefferson MD [address] [place] [address] COLONOSCOPY FLEXIBLE PROXIMAL DIAGNOSTIC Scheduled Procedures Name [...] this encounter Medical Devices Implanted Type Area Honing Machine Operator Semiautomatic Device Identifier Shelf Expiration Date Model / Serial / Lot Baseplate #5 Tritanium - [id number] Implanted:Qty: 1 on 08/02/2019 by Ghassan Marroquin DO at OR [facility] Right: Knee ANTOINE : ORTHOPAEDICS 02/01/2024 5536-B-500 / / [id number] Triathlon Tritanium Asymmetric Patella Implanted:Qty: 1 on 08/02/2019 by Ghassan Marroquin DO at OR [facility] Right: Knee ANTOINE : ORTHOPAEDICS 03/31/2023 5552-L-350 / / [id number] Knee Triathlon Bead No Abiodun R 4 - [id number] Implanted:Qty: 1 on 08/02/2019 by Ghassan Marroquin DO at OR [facility] Right: Knee ANTOINE : ORTHOPAEDICS 12/11/2023 5517-F-402 / / [id number] Triathlon X3 Tibial Bearing Insert-Cs Implanted:Qty: 1 on 08/02/2019 by Ghassan Marroquin DO at OR [facility] Right: Knee ANTOINE : ORTHOPAEDICS 12/01/2023 5531-G-510 -E / / [id number] Knee Triathlon Bead No Abiodun L 4 - [id number] Implanted:Qty: 1 on 05/06/2022 by Ghassan Marroquin DO at OR [facility] Left: Knee ANTOINE : ORTHOPAEDICS 01/21/2027 5517-F-401 / / [id number] Baseplate #4 Tritanium - [id number] Implanted:Qty: 1 on 05/06/2022 by Ghassan Marroquin DO at OR [facility] Left: Knee ANTOINE : ORTHOPAEDICS 11/28/2025 5536-B-400 / / [id number] Patella Symmetric S33mm 9mm - [id number] Implanted:Qty: 1 on 05/06/2022 by Ghassan Marroquin DO at OR [facility] Left: Knee ANTOINE : ORTHOPAEDICS 08/08/2026 5556-L-339 / / [id number] Knee X3 Ins Pos Cs Sz4 9 - [id number] Implanted:Qty: 1 on 05/06/2022 by Ghassan Marroquin, DO at OR [facility] Left: Knee ANTOINE : ORTHOPAEDICS 01/01/2027 5531-G-409 -E / / [id number] documented as of this encounter Visit Diagnoses Diagnosis Fibromyalgia Mylagia and myositis, unspecified Other migraine without status migrainosus, not intractable Special screening for malignant neoplasms, colon documented [...] Power of Attor saadia? No Care Teams Players Assistant Relationship Specialty Start Date End Date Chino Holguin MD [address] [facility] [place] [address] PCP - General Internal Medicine 05/16/22 documented as of this encounter
--- OUTSIDE RECORDS SUMMARY | 2024-02-25 05:25 | External Medical Summary | Continuity of Care Document ---
Author Name Unknown Organization [id number] Address [address] [place] [phone] Care Team Providers Care Columnist/Commentator Name Role Phone No, Referring Primary Care Physician Unavailab le Encounter [facility] [id number] Date(s): 01/30/24 - 01/30/24 [facility] [address] [facility] [address] [facility] [address] [place] [id number] Encounter Diagnosis Degenerative joint disease, shoulder, left(Discharge Diagnosis) - 01/30/24 Discharge Disposition: Home or Self Care Attending Physician: KAREEM Cheung, Dusty Blanco Referring Physician: MD Johan, Cesar Dooley Allergies, Adverse Reactions, Alerts Substance Criticality Severity Reaction Reaction Severity Status sulfADIAZINE oral blisters GI upset Active Diflucan Hives Active Medications amitriptyline 25 mg oral tablet Start: 07/15/23 12:33:00 PM EST, 75 mg =, PO, 4 Refill(s), Take 3 Tablets by mouth at bedtime. Start Date: 07/15/23 Status: Ordered DULoxetine 60 mg oral delayed release capsule Start: 07/15/23 12:28:00 PM EST, 2 cap, PO, Daily Start Date: 07/15/23 Status: Ordered gabapentin 300 mg oral capsule Start: 07/15/23 12:31:00 PM EST, 1 cap, PO, tid Start Date: 07/15/23 Status: Ordered hydrOXYzine hydrochloride 10 mg oral tablet Start: 07/15/23 12:29:00 PM EST, 1 tab, PO, tid, PRN: as needed for anxiety Start Date: 07/15/23 Status: Ordered irbesartan 75 mg oral tablet Start: 01/30/24 10:05:00 AM EDT, 1 tab, PO, Daily Start Date: 01/30/24 Status: Ordered levothyroxine 50 mcg (0.05 mg) oral capsule Start: 07/15/23 12:30:00 PM EST Start Date: 07/15/23 Status: Ordered meloxicam 15 mg oral tablet Start: 07/15/23 12:29:00 PM EST, 1 tab, PO, Daily Start Date: 07/15/23 Status: Ordered metFORMIN Start: 01/30/24 10:05:00 AM EDT, 1,000 mg =, PO, Daily Start Date: 01/30/24 Status: Ordered multivitamin Start: 01/30/24 10:05:00 AM EDT, 1 tab, PO, Daily Start Date: 01/30/24 Status: Ordered omeprazole Start: 01/30/24 10:05:00 AM EDT, 40 mg =, PO, Daily Start Date: 01/30/24 Status: Ordered potassium chloride 10 mEq oral capsule, extended release Start: 07/15/23 12:27:00 PM EST Start Date: 07/15/23 Status: Ordered propranolol 80 mg oral capsule, extended release Start: 07/15/23 12:28:00 PM EST, 1 cap, PO, Daily Start Date: 07/15/23 Status: Ordered rosuvastatin 5 mg oral capsule Start: 07/15/23 12:30:00 PM EST Start Date: 07/15/23 Status: Ordered Vitamin D3 Start: 01/30/24 10:04:00 AM EDT, 125 mcg =, PO, Daily Start Date: 01/30/24 Status: Ordered Mental Status 01/30/24 Barriers to Learning one year None evide nt Mandatory Health Literacy Documentation Yes Health Literacy Communication Barriers N ever Primary Language Bhutanese Problem List Condition Confirmation Course Effective Dates Status H ealth Status Informant Upper back pain Confirmed Active Neck pain Confirmed Active Osteoarthritis of left shoulder Confirmed Active Diagnosis Diagnosis Type Effective Dates Health Status Clinical Service Informant Degenerative joint disease, shoulder, left Discharge Diagnosis 01/30/24 Non-Specified Procedures Procedure Date Related Diagnosis Body Site Status Functional endoscopic sinus surgery Completed Fusion of lumbar spine Co mpleted Knee replacement Complete d Knee replacement Complete d Vital Signs Most recent to oldest [Reference Range]: 1 2 Height 173 cm (01/30/24 10:00 AM) Patient Weight 108 kg (01/30/24 10:00 AM) Body Mass Index 36.09 kg/m2 (01/30/24 10:00 AM) Temperature [36.5-37.9 DegC] 36.2 DegC *LOW* (01/30/24 10:00 AM) Heart Rate 117 bpm 1 (01/30/24 10:30 AM) 81 bpm (01/30/24 10:00 AM) Blood Pressure 130/70mmHg (01/30/24 10:00 AM) Cuff Pulse Pressure 60 mmHg (01/30/24 10:00 AM) 1Result Comment: pulse during pre op per dusty Social History Social History Type Response Smoking Status Never smoked cigaret yvette Sex Female Pre-OP H & P * KAREEM Cheung, Dusty D: PERFORM, MODIFY Event Display: Pre-OP H & P Authored Date: [id number] PRE-OPERATIVE HISTORY AND PHYSICAL Name: ALISSA DAVEY Patient Number: [id number] : 1955 Date of Service: 01/30/2024 PRE-OP Diagnosis: Left shoulder end-stage DJD Planned Procedure: Left shoulder total shoulder arthroplasty Chief Complaint: Left shoulder pain and loss of motion History of Present Illness (including history relevant to procedure): This 68-year-old female presents today for her preoperative history and physical. She is scheduled to undergo a left shoulder total shoulder arthroplasty with Dr. Prado on 02/25/2024. She has had a longstanding history of left shoulder pain, since at least 2019. She initially tried corticosteroid injections with moderate improvement. Symptoms have become worse over the last 12 months and she has lost motion. Conservative care measures are no longer working. She elects to proceed with surgical intervention in hopes of improving her pain and function. Preoperative imaging has been obtained. She denies any numbness or tingling. She denies any loss of elbow or wrist motion. Review Of Systems: Significant for below stated conditions, otherwise unremarkable. Family history: Significant for heart disease, stroke, and diabetes. Social history: The patient is . Retired. No tobacco use, no EtOH use. Past Medical History: Problems: Osteoarthritis of left shoulder Upper back pain Neck pain GERD Obesity Prediabetes Hypothyroidism Hypertension Procedure History Procedure Procedure Date Comments Knee replacement Cataract surgery Fusion of lumbar spine Knee replacement Functional endoscopic sinus surgery Allergies and Sensitivities: Diflucan(Hives) sulfADIAZINE(oral blisters GI upset) Current Home Meds: (Last Updated 01/29 10:06) DULoxetine (DULoxetine 60 mg oral delayed release capsule) 120 mg PO Daily amitriptyline (amitriptyline 25 mg oral tablet) 75 mg PO 4 Refill(s), Take 3 Tablets by mouth at bedtime. cholecalciferol (Vitamin D3) 125 mcg PO Daily gabapentin (gabapentin 300 mg oral capsule) 300 mg PO tid hydrOXYzine (hydrOXYzine hydrochloride 10 mg oral tablet) 10 mg PO tid PRN: as needed for anxiety irbesartan (irbesartan 75 mg oral tablet) 75 mg PO Daily levothyroxine (levothyroxine 50 mcg (0.05 mg) oral capsule) meloxicam (meloxicam 15 mg oral tablet) 15 mg PO Daily metFORMIN 1,000 mg PO Daily multivitamin 1 tab PO Daily omeprazole 40 mg PO Daily potassium chloride (potassium chloride 10 mEq oral capsule, extended release) propranolol (propranolol 80 mg oral capsule, extended release) 80 mg PO Daily rosuvastatin (rosuvastatin 5 mg oral capsule) Vitals: Last Updated 01/30/24 10:30 Weights: Last Updated 01/30/24 10:00 Date Temp Pulse BP RR SpO2 FIO2 Date Wt(kg) Wt(lb) 01/29 10:30 117 01/29 10:00 108.0 238 01/29 10:00 36.2 81 130/70 98 01/29 10:00 108.0 238 24 Hr Tmax: 36.2 at 01/29 10:00 Initial Wt: 01/29 108.0 kg 238 lb Physical Exam: (relevant to the procedure, including heart and lung evaluation) General: Well-developed, well-nourished, middle-aged female, in no acute distress. Sitting on a chair. Alert and oriented. HEENT: Normocephalic, atraumatic. Eyes PERRLA, EOMI. Nares patent bilaterally with clear nasal drainage. Oropharynx with moist oral mucosa. Poor dentition. Neck: No JVD. Cardiac: Tachycardic with irregular rhythm. Rate of 117. No MGR. Peripheral pulses are 2+. Lungs: Clear to auscultation bilaterally. No crackles, rhonchi, or wheezing. Good air movement. Abdomen: Obese. Bowel sounds present x 4. Soft nontender. No organomegaly. No masses. Extremities: Left shoulder evaluation reveals no obvious asymmetry or deformity. She has very limited motion. Abduction of 60 degrees, forward flexion of 60 degrees. External rotation only to neutral. Behind the back reach to her back pocket. She cannot reach her belt line. Crepitus is palpable andaudible with motion. She has focal discomfort with palpation over the glenohumeral joint both anteriorly and posteriorly. Left elbow exam is unremarkable. She has full motion. There is also full motion of the wrist. Neuro: Gross sensation is intact across the left arm by soft touch. Skin: Warm and dry with good turgor. No rashes. No ecchymosis or edema. Studies of radiology results (relevant to the procedure): Radiographic imaging previously obtained shows end-stage DJD of the left shoulder. She is nearly [id number]. Periarticular osteophytes, subchondral sclerosis, and joint space loss are all present. ASSESSMENT: Left shoulder end-stage DJD Plan: Approximate 25 minutes was spent with the patient reviewing operative procedure, postoperative recovery, physical therapy requirements, and medication use. Postoperative prescriptions for Percocet will be sent to her pharmacy upon discharge from the hospital. Anticipate a 1 night stay with discharge to home with outpatient services. Postop appointment has already been made for March 11 forstaple removal. She will attend PAT today for preoperative lab work, EKG, and chest x-ray. PDMP waschecked and there are no concerning findings. She is currently asymptomatic of any COVID-19 or influenza symptoms. She does have a mild runny nose consistent with seasonal allergies. This dictation has been completed using [employer] text voice recognition software. Grammatical errors, omissions, insertions, and misspellings may be present due to the limitations of the software. Electronic Signature on File Electronically Reviewed/Signed by: Dusty Cheung PA-C Author Signature Dt/Tm:01/30/2024 04:40 PM Division of Sports Medicine Electronically Reviewed/Signed by: Cesar Prado MD Cosigner Signature Dt/Tm: 01/30/2024 06:42 PM Batchmaker for Clinical Affairs, [facility] Professor in Orthopaedics Barrel Liner, [facility] CDS Patient Care team information Care Team Personnel Name: No, Referring Position: Referring Member Role: Primary Care Provider Address: Address: No Referring/Pcp Care Team Related Persons Name: JEANINE DAVEY Address: [address] [place] [id number]
[2024-02-25] MEDS: LR 15ML/HR IV SCH (05:36)
[2024-02-25] MEDS: LR 60ML/HR IV SCH (05:55)
[2024-02-25] MEDS ORDERED: BUPIVACAINE 0.5 % 5 MG/1 ML PF 10ML VIAL ONE (06:19)
--- NOTE | 2024-02-25 06:33 | History & Physical Bridge Note ---
Date of Service February 25, 2024 History & Physical Bridge Note I have examined the patient, reviewed the History & Physical and in the interval since the performance of the History & Physical I have noted the following changes of clinical significance: Consent and site verified. Had marked limitations of forward flexion to 60 degrees abduction 40 degrees rotation ability to neutral. States she understands all risk and consequences emphasizing the consent. No changes noted.
[2024-02-25] MEDS ORDERED: ROCURONIUM BROMIDE 10 MG/ML 5 ML VIAL IV ONE ×3 (06:44)
[2024-02-25] MEDS ORDERED: fentaNYL citrate PF 100 MCG/2 ML VIAL ONE (06:44)
[2024-02-25] MEDS ORDERED: MIDAZOLAM HCL 1 MG/ML 2ML VIAL ONE (06:44)
[2024-02-25] MEDS: TRANEXAMIC ACID 1,000 MG **IV Pre-op IV SCH (06:52)
[2024-02-25] MEDS: ceFAZolin 2000MG 2,000 MG/15 ML SYR IV SCH ×2 (07:00→16:26)
[2024-02-25] MEDS ORDERED: fentaNYL citrate PF 100 MCG/2 ML VIAL IV PRN (07:01)
[2024-02-25] MEDS ORDERED: ONDANSETRON INJ 2 MG/ML 2 ML VIAL IV PRN ×2 (07:01→10:47)
[2024-02-25] MEDS ORDERED: ATROPINE SULFATE 0.1 MG/ML 10ML SYR IV PRN (07:01)
[2024-02-25] MEDS ORDERED: ePHEDrine sulfate 50 MG/ML AMP IV PRN (07:01)
[2024-02-25] MEDS ORDERED: PROMETHAZINE HCL 6.25 MG in SODIUM CHLORIDE 0.9% 50 ML IV PRN (07:01)
[2024-02-25] MEDS ORDERED: ONDANSETRON INJ 2 MG/ML 2 ML VIAL ONE (07:36)
[2024-02-25] MEDS ORDERED: DEXAMETHASONE SOD INJ 4 MG/ML VIAL ONE (07:36)
[2024-02-25] MEDS ORDERED: PHENYLEPHRINE 100MCG/ML 10ML SYR IV ONE (07:36)
[2024-02-25] MEDS ORDERED: PROPOFOL IV EMULSION 10 MG/ML 20 ML VIAL IV ONE (07:36)
[2024-02-25] MEDS: TRANEXAMIC ACID 1,000 MG **IV Intra-op IV SCH (08:53)
[2024-02-25] MEDS ORDERED: SUGAMMADEX SODIUM 200 MG/2 ML VIAL IV ONE (09:02)
--- NOTE | 2024-02-25 09:02 | Post Operative Brief Note ---
Immediate Post Op Note Date of Surgery February 25, 2024 Pre & Post Diagnosis Operation Date: 02/25/24 07:00 <No data on this case meets the specified criteria> Left glenohumeral osteoarthritis with marked inferior osteophytes left shoulder pre and postop diagnosis same I identified the patient and participated in the time-out.: Yes Procedure Operation Date: 02/25/24 07:00 <No data on this case meets the specified criteria> Hybrid total shoulder arthroplasty cemented glenoid press-fit humeral stem left shoulder Surgeon Cesar Prado MD Electric Arc Welder Michelle/Skye Estimated Blood Loss 75 Findings Consistent with Post-Op Diagnosis Significant osteoarthritis marked humeral head deformity marked inferior osteophyte grade 4 changes throughout the glenoid and humerus intact within rotator cuff Fluids See anesthesia report Complications None
[2024-02-25] MEDS: THROMBIN FOR SOLN 20000 UNIT KIT ONE (09:03)
--- NOTE | 2024-02-25 09:06 | Operative Report ---
Post Operative Report Pre & Post Diagnosis Severe osteoarthritis of the left shoulder with marked inferior osteophytes intact rotator cuff Operation Date: 02/25/24 07:00 <No data on this case meets the specified criteria> I identified the patient and participated in the time-out.: Yes Procedure Hybrid total shoulder replacement cemented glenoid press-fit humerus Operation Date: 02/25/24 07:00 <No data on this case meets the specified criteria> Surgeon Cesar Prado MD Solutions Sales Executive Michelle/Skye Estimated Blood Loss 75 Findings Consistent with Post-Op Diagnosis Severe osteoarthritis grade 4 disease bipolar UG inferior osteophytes intact within rotator cuff Fluids See anesthesia record Specimens On pathology Drains None Complications None Indications Severe pain marked x-ray findings Description of Procedure After the patient was appropriate dental fight site verified consent for a bite antibiotics confirmed has been given the left arm was prepped and draped as routine fashion with the patient in slight beachchair position. Deltopectoral exposure was then carried out. Cephalic vein was preserved retractors placed ibuprofen show open retractors placed adhesions released on the deltoid subscapularis peeled off biceps released there was already scarred and it did not need to be tenodesed marked osteophytes were removed off the inferior humeral head neck care taken to protect the axillary nerve which was protected with retractors. Once this was all released humeral head was able to be delivered into the wound and the resection made and then revised. The remaining labrum was removed everything was grade 4 on the glenoid as well as humeral head glenoid seating hole was then made serial reaming then carried up and then the peg holes made for a 44 glenoid. Trial fit extremely well. This was all then irrigated soaked in thrombin and then the permanent cemented into position at 12 minutes tractors were removed open look good the subscap was not released appropriately was able to now be fully retracted over the humerus. Humerus was then delivered in the wound and serial broaching carried up for a size 12 stem appropriate anteversion at 30 degrees was applied. Trial reduction fit well best with the 44 x 21 eccentric head. 3 sutures were then placed through the drill holes in the lesser tuberosity and then the permanent stem passed around the sutures and then the permanent stem impacted into position. The sutures were then tensioned appropriately. The humeral head was then applied and then reduced. The subscapularis and rotator interval were then repaired. Repair of the soft tissue was obtained. Wound was irrigated multiple times with Betadine and Pulsavac during the procedure and 1 final time. The interval was then closed with 2-0 plain stains to close. Appropriate dressing applied and arm placed in a sling. She will undergo 30 degrees to 40 degrees of abduction 30 to 40 degrees of forward flexion rotation of belly to 0 degrees in the first 2 to 3 weeks and will not do any combined abduction external rotation for 6 weeks. Summary of implants 44 glenoid 12 standard stem 12 x 135 body 44 x 21 eccentric head. This is the global unite system was a global ankle. Glenoid Global unite poor code standard stem anatomic proximal body 12 x 135 and eccentric humeral head was again global unite. EBL was 75 cc crystalloid per anesthesia bone pathology pending DVT prophylaxis mobilization hand fingers elbow. I attest to the content of the Intraoperative Record and any orders documented therein. Any exceptions are noted below.
--- NOTE | 2024-02-25 09:08 | Orthopedic Progress Note ---
Date of Service February 25, 2024 Assessment & Plan (1) Status post total replacement of left shoulder: Orthopedic Progress Note Underwent left total shoulder placement hybrid. Tolerated procedure well. Vital signs stable. Denies chest pain shortness of breath fever chills nausea vomiting headache. Vital signs are stable. Wound dressing clean dry and intact. X-ray looks excellent. Block is wearing off as active extension of the wrist and flexion of wrist and flexion and extension of the fingers. Wound dressing clean dry and intact. contacted. Imaging going well so far.
--- NOTE | 2024-02-25 09:08 | Discharge Summary ---
Date of Service February 26, 2024 Admission HPI Per Admitting Provider Admitted overnight for left shoulder osteoarthritis. Principal Diagnosis Glenohumeral osteoarthritis left shoulder Discharge Data Allergies Allergy/AdvReac Type Severity Reaction Status Date / Time fluconazole Allergy Unknown HIVES Verified 02/25/24 05:32 Sulfa (Sulfonamide Allergy Unknown sometimes Verified 02/25/24 05:32 Antibiotics) stomach upset and ulcers in mouth Vaccinations None Consultations None Procedures Performed Operation Date: 02/25/24 07:00 <No data on this case meets the specified criteria> Hybrid total shoulder arthroplasty left Ordered Studies 02/25/24 05:00 US - OR guided needle placemen Routine Hospital Course (1) Status post total replacement of left shoulder: Total Time Total Time Spent Total Time Spent (In Minutes): 5 Discharge Plan Discharge Items Patient Disposition: Home - Self-Care Reason For Visit: Left Shoulder Osteoarthritis Discharge Diagnosis: Same Condition on Discharge: Good Activity: Per Instructions section Lifting: Wait until after follow-up appointment Bathing: Keep incision dry Sexual Activity: Wait until after follow-up appointment Exercise/Sports: Wait until after follow-up appointment Driving/Machine Use: No driving until cleared by Dr. Prado Non-emergency contact: Surgeon Call non-emergency contact if: you have any medication questions, your pain is not controlled, your temperature is above 101.5, your wound has increased re dness, your wound has increased drainage and your wound pain has increased Follow-up/Referrals: Lesa Holguin MD [Primary Care Provider] - Diet: Carb Consistent or DM2 Addtl Attending Provider Instructions: DIET: * Resume previous diet. MEDICATIONS: * Please take your prescriptions as instructed at your pre-op appointment and/or see medication discharge instructions listed above. * If concerns develop, call your physician's office at . SPECIAL CARE INSTRUCTIONS: * Ice/Elevate as instructed. * Keep dressing clean, dry, intact. * Your surgical extremity may be discolored due to prepping agents used on the skin. A bluish-green tint is a normal variant and should not cause alarm. Call your doctor at [phone] if: * Temperature above 101 degrees * Pain not relieved by pain medicine ordered * There is increased drainage or redness from any incision * You have any unanswered questions, problems or concerns. FOLLOW UP VISIT: * If not already scheduled, please call the office at to schedule a follow-up appointment. Follow-up in the office at 1030 on February 25 for your first therapy appointment Follow-up with [facility] in [place] on FridayFeb 26 for your next physical therapy appointment Keep your sling on at all times. Do not use the left arm Keep your dressings clean and dry Ice and elevate the shoulder frequently to reduce pain and swelling Take aspirin 325 mg twice a day for 3 weeks to prevent blood clots Pending Studies at Discharge: Yes (Bone pathology) Studies:: bone pathology Stand-Alone Forms: My [facility] Medications and DC Order Prescriptions: New oxycodone-acetaminophen [Percocet] 5-325 mg tablet 2 tab PO Q6H PRN (Reason: pain) Qty: 18 0RF Rx Instructions: initial script No Action metformin 500 mg Tablet 1,000 mg PO QAM potassium chloride 10 mEq Capsule, Extended Release 10 meq PO QAM propranolol 80 mg Tablet 80 mg PO QAM Patient Comments: migraines meloxicam 15 mg Tablet 15 mg PO QAM omeprazole 40 mg Capsule,Delayed Release(Dr/Ec) 40 mg PO HS amitriptyline 25 mg Tablet 75 mg PO HS levothyroxine 50 mcg Tablet 50 mcg PO QAM hydroxyzine HCl 10 mg Tablet 10 mg PO TID PRN (Reason: itchiness/dry skin) multivitamin Capsule 1 cap PO QAM rosuvastatin 5 mg Tablet 5 mg PO QAM duloxetine 30 mg Capsule,Delayed Release(Dr/Ec) 60 mg PO HS gabapentin 400 mg Tablet 500 mg PO BID cholecalciferol (vitamin D3) [Vitamin D3] 125 mcg (5,000 unit) Tablet 125 mcg PO QAM albuterol sulfate [ProAir HFA] 90 mcg/actuation Hfa Aerosol Inhaler 1 puff INHALATION QID PRN (Reason: Cough) Discharge Orders: Discharge Order (Routine); Ordered 02/26/24 Ordered By: Cesar Prado Admission Data Admit Date/Time: 02/25/24 09:35 Attending Provider: Cesar Prado Admit Provider: Cesar Prado Primary Care Provider: Lesa Holguin
--- NOTE | 2024-02-25 09:30 | Operative Report ---
Post Operative Report Pre & Post Diagnosis Operation Date: 02/25/24 07:00 Pre-Op Diagnosis: Left Shoulder End-Stage Degenerative Joint Disease Post-Op Diagnosis: Left Shoulder End-Stage Degenerative Joint Disease I identified the patient and participated in the time-out.: Yes Procedure Operation Date: 02/25/24 07:00 Actual Procedures p Left Total Shoulder Arthroplasty(Left) - Cesar Prado MD Surgeon Cesar Prado MD Machinist Michelle/Skye Estimated Blood Loss 75 Findings Consistent with Post-Op Diagnosis Specimens On pathology Disposition Accompanied Patient To Recovery: Yes Disposition: Recovery Room Description of Procedure The patient was administered a regional block and then taken to the operating room where they underwent general anesthesia per anesthesia providers. They were prepped and draped in the usual sterile fashion. Please see Dr. Prado's operative report for specifics of the procedure. I was present for the entire case from initial patient positioning through final closure. Assistance was provided in tissue retraction, hemostasis, hardware placement, final wound closure, and postoperative dressing and sling application. The patient was taken to the recovery room in satisfactory condition. I attest to the content of the Intraoperative Record and any orders documented therein. Any exceptions are noted below.
[2024-02-25] MEDS ORDERED: ALUMINUM/MAGNESIUM SUSP 30 ML UDC PO PRN (10:47)
[2024-02-25] MEDS ORDERED: PHARMACY GLYCEMIC MGMT CONSULT PRN (10:47)
[2024-02-25] MEDS ORDERED: METOCLOPRAMIDE HCL INJ 5 MG/ML 2 ML VIAL IV PRN (10:47)
[2024-02-25] MEDS ORDERED: hydrOXYzine HCl 10 MG TAB PO PRN (10:47)
[2024-02-25] MEDS ORDERED: bisacodyL 10 MG SUPP PR PRN (10:47)
[2024-02-25] MEDS ORDERED: ALBUTEROL HFA 8 GM INHALER INH PRN (10:47)
[2024-02-25] MEDS ORDERED: oxyCODONE HCL IR 5 MG TAB (IMMEDIATE RELEASE) PO PRN (10:47)
[2024-02-25] MEDS ORDERED: diphenhydrAMINE 50 MG/ML VIAL IV PRN (10:47)
[2024-02-25] MEDS ORDERED: VANCOMYCIN CONSULT ACTIVE PRN (10:47)
[2024-02-25] MEDS ORDERED: MAGNESIUM HYDROXIDE SUSP 30 ML UDC PO PRN (10:47)
[2024-02-25] MEDS ORDERED: HYDROmorphone INJ 0.5 MG/0.5 ML SYR IV PRN (10:47)
[2024-02-25] MEDS ORDERED: NALOXONE HCL 0.4 MG/1 ML VIAL/CARP IV PRN (10:47)
--- NOTE | 2024-02-25 10:55 | Anesthesiology Progress Note ---
Date of Service February 25, 2024 Anesthesia Post Procedure Vital Signs Vital Signs: Temp Pulse Pulse Resp BP Pulse Ox O2 Del Method 02/25/24 10:48 36.8 C 87 20 136/91 96 Room Air 02/25/24 10:21 36.6 C 84 18 156/99 H 96 Room Air 02/25/24 10:05 84 20 151/91 H 96 Room Air 02/25/24 09:55 36.5 C 82 21 148/90 H 96 Room Air 02/25/24 09:45 83 18 159/76 H 96 Room Air 02/25/24 09:35 81 18 157/90 H 100 Oxymask 02/25/24 09:25 36.0 C L 83 16 153/90 H 99 Oxymask 02/25/24 05:36 Room Air 02/25/24 05:36 36.8 C 91 H 20 167/92 H 100 Room Air O2 Flow Rate 02/25/24 10:48 02/25/24 10:21 02/25/24 10:05 0 02/25/24 09:55 0 02/25/24 09:45 0 02/25/24 09:35 4 02/25/24 09:25 8 02/25/24 05:36 02/25/24 05:36 Pain Intensity Left Shoulder: Pain Intensity: 2 Transfer of Care Handoff Completed per policy Notes Mental Status: alert / awake / arousable Patient Amnestic to Procedure: Yes Nausea / Vomiting: adequately controlled Pain: adequately controlled Airway Patency, RR, SpO2: stable & adequate BP & HR: stable & adequate Hydration State: stable & adequate Anesthetic Complications: no major complications apparent Notes: block working well in pacu
--- NOTE | 2024-02-25 11:20 | Operative Report ---
Post Operative Report Pre & Post Diagnosis Operation Date: 02/25/24 07:00 Pre-Op Diagnosis: Left Shoulder End-Stage Degenerative Joint Disease Post-Op Diagnosis: Left Shoulder End-Stage Degenerative Joint Disease I identified the patient and participated in the time-out.: Yes Procedure Operation Date: 02/25/24 07:00 Actual Procedures p Left Total Shoulder Arthroplasty(Left) - Cesar Prado MD Surgeon BRETT Prado MD Metal Control Coordinator Michelle/Skye SERNA Estimated Blood Loss 75 Findings Consistent with Post-Op Diagnosis see operative report Specimens see operative report Drains none Complications none Disposition Accompanied Patient To Recovery: Yes Indications This 68 year old female presented to the office with complaints of persisting left shoulder pain. She had tried conservative care measures without improvement. She elected to proceed with surgical intervention after being educated about potential risks and outcomes. Preoperative imaging was obtained. Description of Procedure The patient was administered a regional block and then taken to the operating room where she was given general anesthesia. She was prepped and draped in the usual sterile fashion. Please see Dr. Prado's operative report for specifics of the procedure. I was present for the entire case from initial patient positioning through final wound closure. Assistance was provided and tissue retraction, hemostasis, trial implant placement, final implant placement, and final wound closure. The patient was taken to the recovery room in satisfactory condition. I attest to the content of the Intraoperative Record and any orders documented therein. Any exceptions are noted below.
--- NOTE | 2024-02-25 11:44 | XRay Report ---
XR shoulder LT 1V CLINICAL HISTORY: S/P L TSA 1 view in sling TECHNIQUE: 3 views of the left shoulder were obtained. Comparison: Comparison is made to shoulder radiograph 10/14/2023 FINDINGS: Patient is status post shoulder arthroplasty with expected postsurgical changes including soft tissue swelling and subcutaneous emphysema. No periarticular lucency or hardware fracture is seen. IMPRESSION: Expected postoperative appearance status post placement of shoulder arthroplasty. ACT 112: Negative or not required by law. Electronically signed by: Av Cabral M.D. 02/25/2024 11:43 AM
[2024-02-25] MEDS: VANCOMYCIN HCL 1,500 MG in SODIUM CHLORIDE 0.9% 500 ML IV ONE (11:46)
[2024-02-25] MEDS: KETOROLAC TROMETHAMINE 15 MG/ML VIAL IV SCH (11:46)
[2024-02-25] MEDS: SODIUM CHLORIDE 0.9% 1,000 ML IV SCH (12:50)
[2024-02-25] MEDS: INSULIN ASPART PER UNIT CHARGE SC SCH (12:50)
[2024-02-25] MEDS: ACETAMINOPHEN 500 MG TAB PO SCH (14:11)
--- NOTE | 2024-02-25 14:31 | Pharmacy Report ---
Pharmacy Glycemic Short Note 2 - Date of Service February 25, 2024 - Glycemic Short BSG Results (Last 24 hours): 02/25/24 02/25/24 05:33 11:16 POC Glucose 96 140 H OUTPATIENT ANTIDIABETIC REGIMEN: * metformin ER 1000mg QAM * HbA1c 5.9% (01/30/24) ASSESSMENT: * Sagrario is a 68 YOF admitted status post left total shoulder arthroplasty with a history of pre-diabetes. Pharmacy has been consulted to assist with glycemic management while inpatient. * Preoperative BSG excellent this AM, she did received 8mg IV dexamethasone preoperatively, will hold basal as BSGs have been well controlled. * Novolog initiated at a weight based stress of 1 to cover steroid induced hyperglycemia. PLAN FOR INPATIENT GLYCEMIC CONTROL: * Hold outpatient oral diabetes medications * Basal insulin * Hold for now * Bolus insulin * NovoLog per scale ACHS or Q6hrs while NPO * Goal Range: Low 110 mg/dL - High 140 mg/dL * Correction Factor: 45 mg/dL/unit * Nutritional / Prandial insulin per carb ratio of 1 unit per 15 grams CHO consumed
[2024-02-25] MEDS: ASCORBIC ACID 500 MG TAB PO SCH (17:24)
[2024-02-25] MEDS: FERROUS GLUCONATE 324 MG TAB PO SCH (17:24)
[2024-02-25] MEDS: SENNA 8.6 MG TAB PO SCH (20:42)
[2024-02-25] MEDS: AMITRIPTYLINE HCL 25 MG TAB PO SCH (20:42)
[2024-02-25] MEDS: DULoxetine HCL 60 MG CAP PO SCH (20:42)
[2024-02-25] MEDS: PANTOprazole 40 MG TAB PO SCH (20:43)
[2024-02-25] MEDS: DOCUSATE SODIUM 100 MG CAP PO SCH (20:43)
[2024-02-25] MEDS: GABAPENTIN 400 MG CAP PO SCH (20:44)
[2024-02-25] MEDS: GABAPENTIN 100 MG CAP PO SCH (20:44)
[2024-02-25] MEDS: APIXABAN 2.5 MG TAB PO SCH (20:45)
[2024-02-25 23:18] VITALS: O2SAT 94
[2024-02-26] MEDS: LEVOTHYROXINE SODIUM 50 MCG TABLET PO SCH (05:39)
--- NOTE | 2024-02-26 06:54 | Orthopedic Progress Note ---
Date of Service February 26, 2024 Assessment & Plan Admission and Anticipated Discharge Date Admission Date: February 25, 2024 Orthopedic Progress Note Postop day #1 status post left total shoulder replacement. Patient doing well denies chest pain shortness of breath fever chills nausea vomiting or headache. Vital signs are stable she is afebrile. Neurovascular check reveals intact axillary nerve median radial ulnar suprascapular nerves intact. Wound dressing clean dry and intact. Assessment doing well discharged home today. She has PT outpatient at 1030 will have dressing change there. Protocol for range of motion to be given. At this point in time for the first 4 weeks she should not externally rotate beyond 0 degrees from her belly she should not extend her shoulder forward flexion to tolerance and abduction to tolerance. Follow-up follow-up in 2 weeks for staple removal.
[2024-02-26 07:17] LABS: Hematocrit (blood only) 34.1 % (37.0-47.0); Hemoglobin 11.3 g/dl (12.0-16.0); Mean Corpuscular Hemoglobin 32.8 pg (25.0-34.0); Mean Corpuscular Hgb Conc 33.1 g/dL (32.0-36.0); Mean Corpuscular Volume 98.8 fL (80.0-100.0); Mean Platelet Volume 10.7 fL (9.4-12.4); Platelet Count 188 K/uL (130-400); RDW Coefficient of Variation 12.8 % (11.5-14.5); RDW Standard Deviation 46.2 fL (36.4-46.3); Red Blood Count 3.45 M/uL (4.20-5.40)
[2024-02-26 07:51] LABS: BUN Creatinine Ratio 22.6 (10-20); Calcium 9.9 mg/dl (8.6-10.3); Creatinine Clr Calc Pharmacy 83.7 ml/min; Est GFR (African American) 82.8 ml/min; Est GFR (Non-African American) 71.4 ml/min; Potassium 4.2 mmol/L (3.5-5.1)
[2024-02-26] MEDS: PROPRANOLOL HCL 80 MG TAB PO SCH (08:05)
[2024-02-26] MEDS: MULTIVITAMIN TAB PO SCH (08:05)
[2024-02-26] MEDS: ROSUVASTATIN CALCIUM 5 MG TAB PO SCH (08:05)
[2024-02-26] MEDS: POTASSIUM CHLORIDE 10 MEQ TABCR PO SCH (08:05)
[2024-02-26 08:23] VITALS: BP 129/84; PULSE 87; RESP 18; TEMP 98.4
[2024-02-26] MEDS ORDERED: NON-FORMULARY MEDICATION (Multivitamin Capsule) PO SCH (09:00)
== END 2024-02-26 10:13 | disposition home or self-care (01) ==
LOC: ASU 05:06 → 3W 05:06